=== PATIENT | female | born 1975 | race Caucasian/White ===

== ENCOUNTER 2019-10-21 18:05 | Emergency (ER) | payer OTHER ==
[~2019-10-21] VITALS: Ht 147.3 cm; Wt 52.6 kg
[2019-10-21] MEDS ORDERED: PANADOL EXTRA500 MG (18:18)
[2019-10-21] MEDS ORDERED: ZYRTEC (18:19)
== END 2019-10-21 22:33 | disposition home or self-care (01) ==
LOC: ER 18:05
DX: O20.8 Other hemorrhage in early pregnancy (principal); Z34.01 Encounter for supervision of normal first pregnancy, first trimester

== ENCOUNTER → 2020-01-19 | Emergency (ER) | payer OTHER ==
[~2020-01-19] VITALS: Ht 147.3 cm; Wt 54.0 kg
[~2020-01-19] MED LIST: PANADOL EXTRA500 MG; ZYRTEC
== END | disposition left against medical advice (07) ==
LOC: ER 11:26
DX: Z53.20 Procedure and treatment not carried out because of patient's decision for unspecified reasons (principal)